=== PATIENT | female | born 1955 | race Caucasian/White ===

== ENCOUNTER 2017-09-07 12:51 | Emergency (ER) | payer BC ==
[2017-09-07 13:56] VITALS: BP 141/62
--- NOTE | 2017-09-07 14:11 | UC ---
Lower Extremity/Ankle HPI - HPI Summary HPI Summary: Has had increasing pain in R foot for the last several days, no recent injury. Did have R navicular fx March 2016, the injury only stopped hurting about 6 months ago despite x-rays showing healing. Pain is constant but worse with wt- bearing and the process of putting on shoes (once the shoes are on it feels better). Unable to walk barefoot due to pain. - History of Current Complaint Chief Complaint: UCLowerExtremity Stated Complaint: FOOT INJURY Time Seen by Provider: 09/07/17 13:49 Hx Obtained From: Patient ?: No Onset/Duration: Gradual Onset, Lasting Days Severity Initially: Moderate Aggravating Factor(s): Standing, Ambulation Alleviating Factor(s): Rest Able to Bear Weight: Yes - Allergies/Home Medications Allergies/Adverse Reactions: Allergies Allergy/AdvReac Type Severity Reaction Status Date / Time enviromental Allergy Runny Nose Uncoded 09/07/17 13:56 pine pollen Allergy Runny Nose Uncoded 09/07/17 13:56 PMH/Surg Hx/FS Hx/Imm Hx Cancer History: Breast Cancer - Surgical History Surgical History: Yes Surgery Procedure, Year, and Place: LEFT lumpectomy -. tubal ligation THEN REVERSAL OF TUBAL LIGATION - Family History Known Family History: Positive: Hypertension - Social History Alcohol Use: Weekly Substance Use Type: None Smoking Status (MU): Never Smoked Tobacco - Immunization History Most Recent Influenza Vaccination: Review of Systems Constitutional: Negative Skin: Negative Eyes: Negative ENT: Negative Respiratory: Negative Cardiovascular: Negative Gastrointestinal: Negative Genitourinary: Negative Motor: Negative Neurovascular: Negative Musculoskeletal: Arthralgia Neurological: Negative Psychological: Negative Is Patient Immunocompromised?: No All Other Systems Reviewed And Are Negative: Yes Physical Exam Triage Information Reviewed: Yes Appearance: Well-Appearing, No Pain Distress, Well-Nourished Vital Signs: Initial Vital Signs Temp 98.2 F 09/07/17 13:52 Pulse 89 09/07/17 13:52 Resp 18 09/07/17 13:52 BP 141/62 09/07/17 13:52 Pulse Ox 99 09/07/17 13:52 Vital Signs Reviewed: Yes Eye Exam: Normal Eyes: Positive: Conjunctiva Clear ENT Exam: Normal ENT: Positive: Normal ENT inspection, Hearing grossly normal, Pharynx normal, TMs normal Neck exam: Normal Respiratory Exam: Normal Respiratory: Positive: Chest non-tender, Lungs clear, Normal breath sounds, No respiratory distress, No accessory muscle use Cardiovascular Exam: Normal Cardiovascular: Positive: RRR, No Murmur Musculoskeletal Exam: Other - diffuse pain over lateral part of foot. Musculoskeletal: Positive: Strength Intact, ROM Intact, No Edema Neurological Exam: Normal Neurological: Positive: Alert Psychological Exam: Normal Skin Exam: Normal Lower Extremity Course/Dx - Course Course Of Treatment: After consulting with old radiographs, it appears pt's past foot fracture was in the LEFT foot. Advised pt to wear boot for all weight- bearing for the next 1-2 weeks and take naproxen for pain. If pain is not better in that time, she will see a account service associate. - Differential Dx/Diagnosis Provider Diagnoses: R foot tendinitis Discharge - Discharge Plan Condition: Stable Disposition: HOME Patient Education Materials: Tendinitis (ED) Referrals: Machelle Baker MD [Primary Care Provider] - Joel Woodruff DPM [Doctor of Podiatric Medicine] - 2 Weeks Additional Instructions: Your old injury appears to be on your LEFT foot. This new pain is probably from tendon inflammation and overuse -- sometimes people will need special show inserts to help with this kind of pain. If naproxen twice daily and using the walking boot don't help within 10-14 days, please consult with a account service associate.
--- NOTE | 2017-09-07 14:49 | RAD ---
Indication: RIGHT foot pain for a few days. History of contralateral navicular fracture in 2016. Similar region pain. Comparison: Contralateral foot May 20, 2016. Technique: AP, lateral, and oblique views RIGHT foot. Report: Normal articular alignment. Negative for fracture or radiographic stigmata of stress reaction. Bone density appears decreased throughout. Unremarkable soft tissue contours. IMPRESSION: 1. No evidence for fracture or radiographic stigmata of stress reaction. 2. Bone density appears decreased. Consider follow-up DEXA scan.
== END 2017-09-07 14:35 | disposition home or self-care (01) ==
LOC: UCEAST 12:51
DX: M77.51 Other enthesopathy of right foot and ankle (principal); Z85.3 Personal history of malignant neoplasm of breast
CPT/HCPCS: 99211; G0463